=== PATIENT | female | born 1980 | race Caucasian/White ===

== ENCOUNTER → 2017-04-18 | Outpatient (CLI) | payer MEDICARE, OTHER ==
--- NOTE | 2017-04-18 12:32 | WWHP ---
[facility] - HISTORY AND PHYSICAL DATE OF SERVICE: 04/18/2017 CHIEF COMPLAINT: Patient is here for her routine gynecologic exam. HPI: This is a 36-year-old, G4, P-0-4-0 with an LMP of 04/15/2017. The patient uses condoms for control. She states her periods are regular every month but seem to last up to 2 weeks and are very heavy throughout the entire period. She states she has to change her protection up to every 30 minutes on the very heavy days. She is not interested in ever bearing children and would also like to look into having something done regarding her heavy menstrual periods. She states she previously was put on control pills, but this seemed to make her periods worse. PAST MEDICAL HISTORY: Schizophrenia and major depression, bipolar disorder. She was once told her blood pressure was elevated but does not take anything for high blood pressure. MEDICATIONS: 1. Abilify 10 mg q.h.s. 2. Abilify Maintena 400 mg 1 injection monthly. 3. Clozaril 100 mg 2 tablets at bedtime. 4. Sertraline 100 mg 1 p.o. q.a.m. ALLERGIES: No known drug allergies. PAST SURGICAL HISTORY: None. PAST OB HISTORY: The patient states she has been more than once and has had spontaneous abortions with each of them. She believes she has had about 4 miscarriages. PAST PACKING AND SHIPPING CLERK HISTORY: Menarche was at age 15. She initially had periods every 3 months until about age 22 when they became regular every month. She has had hypermenorrhea since then. She has no history of STDs. SOCIAL HISTORY: She denies tobacco, alcohol, and drug use. She does live on her own and has been with her boyfriend for 3 months but does not live with him. She has had a total of about 6 sexual partners in her lifetime. FAMILY HISTORY: Mother, maternal grandmother, and maternal aunts have schizophrenia. REVIEW OF SYSTEMS: She states she previously weighed up to 300 pounds but has lost weight with diet and exercise. She denies respiratory, cardiac or GI problems. PHYSICAL EXAM: Blood pressure 118/64, height 5 feet 8 inches, weight 229 pounds, temperature 96.3, pulse 98. This is a well-developed, well-nourished, white female, who is alert and oriented x3. In no acute distress. HEENT is within normal limits. NECK: Supple without mass or thyromegaly. CHEST AND LUNGS: Clear to auscultation. HEART: Regular rate and rhythm. Breasts are without mass or discharge. Axillary exam is negative for adenopathy. Back negative for CVA tenderness. ABDOMEN: Soft, nontender, without palpable masses. Pelvic exam normal external genitalia. Cervix and vagina revealed a small amount of menstrual-type blood. There is otherwise no other abnormal discharge. There is no evidence of prolapse. There is no cervical motion tenderness. The uterus is mid position, nongravid size and nontender. There are no palpable adnexal masses or tenderness. Rectal exam was declined by the patient. EXTREMITIES: Nontender. IMPRESSION: 1. A 36-year-old female with normal gynecologic exam. 2. Long history of hypermenorrhea consisting of heavy menstrual flow and prolonged menses without any significant physical findings at this time. 3. Undesired fertility. 4. History of schizophrenia, major depression and bipolar disorder. PLAN: 1. Pap smear was performed. 2. GC and chlamydia screening from the cervix were obtained. 3. Self breast examination was discussed. 4. We have had a long discussion regarding her hypermenorrhea and her undesired fertility. I have recommended that she look into endometrial ablation and tubal sterilization. She states she is also considering hysterectomy. 5. The patient will be referred to a order department supervisor who can talk to her about these procedures and possibly do the procedures for her hypermenorrhea and undesired fertility. 6. ACOG frequently asked question handouts on endometrial ablation and tubal sterilization were given to the patient. 7. She will also return in 1 year. MMODL / IJN: [id number] /
== END ==
LOC: WWCWWP 09:50 → EEVIPCON 10:40
PROVIDERS: ATTEND Obstetrics & Gynecology
DX: Z00.00 Encounter for general adult medical examination without abnormal findings (principal)

== ENCOUNTER → 2017-10-03 | Outpatient (CLI) | payer MEDICARE, OTHER ==
--- NOTE | 2017-10-04 08:23 | US ---
EXAMINATION TYPE: US OB >= 14 wk fetus Late second trimester DATE OF EXAM: 10/03/2017 COMPARISON: None CLINICAL HISTORY: Z36 Confirm Dates, Z34.00 Unknown dates. TECHNIQUE: Transabdominal (TA) GESTATIONAL AGE / DATING Physician Established: Not yet established Dates by LMP: LMP unknown Dates by First Scan: No previous this is first scan Dates by Current Scan: (25 weeks/2 days) EDC: 01/14/2018 Beta HCG (if available): Not available at this time SURVEY IUP: Single PLACENTA: Anterior PREVIA: No Previa SHAYNE: 11.8 cm Normal CERVICAL LENGTH (transabdominal: norm > 3.0cm): 4.2 cm BIOMETRY PRESENTATION: Vertex LIE: Longitudinal BPD: 6.2 cm 25 weeks / 2 days HC: 23.0 cm 25 weeks / 1 days AC: 20.4 cm 25 weeks / 0 days FL: 4.7 cm 25 weeks / 5 days ESTIMATED WEIGHT IN GRAMS: 788 grams ESTIMATED WEIGHT IN LBS/OZ: 1 lbs. 12 oz. HC/AC: 1.13 FL/AC: 23% HEART RATE: 158 bpm RHYTHM: Normal Single live intrauterine gestation is confirmed. Normal cephalad presentation to fetus is seen. There is no ultrasound evidence for placenta previa. Amniotic fluid index is within normal limits. b iometry measurements are congruent and felt within normal limits. IMPRESSION: As above
== END | disposition home or self-care (01) ==
LOC: RADUSWWP 15:41
PROVIDERS: ATTEND Internal Medicine
DX: Z36.9 Encounter for antenatal screening, unspecified (principal); Z3A.25 25 weeks gestation of pregnancy
CPT/HCPCS: 76805

== ENCOUNTER 2017-12-06 17:12 | Outpatient (CLI) | payer MEDICARE, OTHER ==
[2017-12-06 17:57] VITALS: BP 122/72; PULSE 97; RESP 16; TEMP 96.9
--- NOTE | 2017-12-06 19:13 | US ---
EXAMINATION TYPE: US OB BPP wo non-stress DATE OF EXAM: 12/06/2017 COMPARISON: NONE CLINICAL HISTORY: Fell on abdomen about 1600; non-reassuring FHT's. DIAPHRAGM IMAGED: Yes BPP SCORIN. Breathin (1 episode of breathing of 30 second duration in 30 minutes of scanning time) 2. Movement: 2 (at least 2 discrete body movements in 30 minutes) 3. Tone: 2 (1 episode of active flexion/extension of limb) 4. SHAYNE: 2 (SHAYNE index > 5cm) TOTAL SCORE: 8 / 8 Normal exam. Biophysical profile score is 8.
[2017-12-06] MEDS ORDERED: LACTATED RINGERS 1,000 ML IV ONE (19:30)
[2017-12-06 20:32] LABS: Amphetamine Screen,Urine Not Detected (NotDetected); Barbiturate Screen,Urine Not Detected (NotDetected); Benzodiazepines Screen,Urine Not Detected (NotDetected); Cocaine Screen,Urine Not Detected (NotDetected); Methadone Screen, Urine Not Detected (NotDetected); Opiate Screen,Urine Not Detected (NotDetected); Oxycodone Screen, Urine Not Detected (NotDetected); Phencyclidine Screen,Urine Not Detected (NotDetected); Tricyclic Antidepressant,Urine Detected (NotDetected); Urn Cannabinoid Scrn Not Detected (NotDetected)
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
== END 2017-12-06 20:50 | disposition home or self-care (01) ==
LOC: FBPOP 17:12
PROVIDERS: ATTEND Obstetrics & Gynecology
DX: O9A.213 Injury, poisoning and certain other consequences of external causes complicating pregnancy, third trimester (principal); O26.893 Other specified pregnancy related conditions, third trimester; G89.11 Acute pain due to trauma; Z3A.34 34 weeks gestation of pregnancy
CPT/HCPCS: 59025; 96360; 80306; 76819; G0463; 99214

== ENCOUNTER 2018-01-22 10:36 | Inpatient (IN) | payer MEDICARE, OTHER ==
[2018-01-22] MEDS ORDERED: OXYTOCIN 10 UNIT/ML 1 ML VIAL IM PRN (11:12)
[2018-01-22] MEDS ORDERED: CARBOPROST TROMETHAMINE 250 MCG/ML 1 ML AMP IM PRN (11:12)
[2018-01-22] MEDS ORDERED: LIDOCAINE 1% (PF) 10 MG/ML (30 ML SDV) SQ PRN (11:12)
[2018-01-22] MEDS ORDERED: TERBUTALINE 1 MG/ML VIAL SQ PRN (11:12)
[2018-01-22] MEDS ORDERED: METHYLERGONOVINE 0.2 MG/ML 1 ML AMP IM PRN (11:12)
[2018-01-22] MEDS ORDERED: OXYTOCIN 20 UNITS/1000 ML NS 1,000 ML IV SCH (11:15)
[2018-01-22 11:19] VITALS: BMI 40.6
[2018-01-22 11:28] LABS: Basophils % (A) 0 %; Eosinophils % (A) 0 %; HCT 38.2 % (34.0-46.0); HGB 12.7 gm/dL (11.4-16.0); Lymphocytes # (A) 1.3 k/uL (1.0-4.8); Lymphocytes % (A) 7 %; MCH 28.9 pg (25.0-35.0); MCHC 33.3 g/dL (31.0-37.0); MCV 86.7 fL (80.0-100.0); Mean Platelet Volume 7.8; Monocytes # (A) 0.4 k/uL (0-1.0); Monocytes % (A) 3 %; Neutrophils # (A) 15.3 k/uL (1.3-7.7); Neutrophils % (A) 89 %; Platelet Count 228 k/uL (150-450); RBC 4.41 m/uL (3.80-5.40); RDW 14.3 % (11.5-15.5); WBC 17.1 k/uL (3.8-10.6)
--- NOTE | 2018-01-22 12:00 | P.HPOB ---
History of Present Illness H&P Date: 01/22/18 Chief Complaint: Decreased movement This is a 37-year-old female 5 para 1031 EDC 01/14/2018 at 41 and one sevenths weeks' gestation. Patient presented to the office, and upon questioning reported decreased movement. Amniotic fluid index was checked and noted to be 8 cm. She had a nonreactive nonstress test and was sent over for direct admission. She denies uterine contractions. Spontaneous amniorrhexis occurred, meconium-stained fluid a proximally 1 hour ago. Obstetric history is significant for negative group B strep cultures, rubella status immune, blood type O+. Gonorrhea and chlamydia cultures, Pap smear, VDRL testing, hepatitis B surface antigen, HIV testing all negative. Past medical history is significant for bipolar disorder, major depression and schizophrenia. She also has a history of asthma. Past surgical history wisdom teeth extracted in the past. Current medications clots 0 100 mg tabs 3 at at bedtime. vitamin daily. ALLERGIES none known. Family history significant for schizophrenia and hypertension. On exam she is 5 foot 8 inches, 252 pounds, blood pressure 129/78, pulse 1:15. She is afebrile. The general physical exam is within normal limits. Cervix is 2 cm dilated, 70% effaced, dark meconium-stained fluid noted at the perineal body. Internal scalp lead is placed, application is not sound, therefore it is removed. External monitor reveals a heart rate in the 140s to 150s baseline with reasonable overall variability. Mild irregular uterine contractions are noted. Upon pelvic examination, there is a spontaneous deceleration for approximately 4 minutes, good recovery is noted. Impression: 41 and one sevenths weeks intrauterine , dark meconium- stained fluid, nonreassuring heart tones here for augmentation of labor. Psychiatric history noted, patient well oriented 3 with appropriate mood and affect at this time her Plan: Oxytocin per hospital protocol. Continue close maternal and surveillance. Anticipate normal spontaneous vaginal delivery. Patient has consented to tubal ligation if a section and is deemed necessary during the course of labor. All questions per patient and multiple family members are addressed. Review of Systems Negative except as in HPI. Constitutional: Reports as per HPI Past Medical History Past Medical History: Asthma, GERD/Reflux Additional Past Medical History / Comment(s): FREQUENT VOMITING, hypoglycemia. Schizophrenia, major depression, bipolar disorder History of Any Multi-Drug Resistant Organisms: None Reported Past Surgical History: No Surgical Hx Reported Past Anesthesia/Blood Transfusion Reactions: No Reported Reaction Past Psychological History: Bipolar, Schizophrenia Smoking Status: Never smoker Past Alcohol Use History: None Reported Past Drug Use History: None Reported - Past Family History Mother Family Medical History: Cancer, Hypertension Additional Family Medical History / Comment(s): lung cancer Father Family Medical History: Cancer, Hypertension Additional Family Medical History / Comment(s): liver cancer Medications and Allergies Home Medications and Allergies Comment(s): clozaril 100mg 3 pills at hs Home Medications Medication Instructions Recorded Confirmed Type Pnv,Calcium 72/Iron/Folic Acid 1 tab PO DAILY 12/06/17 12/06/17 History [ Plus Tablet] Allergies Allergy/AdvReac Type Severity Reaction Status Date / Time latex Allergy Rash/Hives Verified 01/22/18 11:02 Exam - Vital Signs Vital signs: Vital Signs Temp Pulse Resp BP 01/22/18 11:03 96.6 F L 115 H 16 129/78 Intake and Output 01/21/18 01/22/18 01/22/18 22:59 06:59 14:59 Other: Weight 114.305 kg See dictation under HPI please Results Result Diagrams: 01/22/18 11:06 Abnormal Lab Results - Last 24 Hours (Table) 01/22/18 Range/Units 11:06 WBC 17.1 H (3.8-10.6) k/uL Neutrophils # 15.3 H (1.3-7.7) k/uL Assessment and Plan Plan: Close maternal and surveillance. Oxytocin augmentation. Patient is requesting tubal ligation if section as needed. Time with Patient: Greater than 30
[2018-01-22] MEDS ORDERED: ceFAZolin IN SWFI 2 GM/20 ML SYRINGE IVP ONE (13:18)
[2018-01-22] MEDS ORDERED: CITRIC ACID-SODIUM CITRATE 15 ML CUP PO ONE (13:18)
[2018-01-22] MEDS ORDERED: ePHEDrine SULFATE/0.9% NACL/PF 50 MG/5 ML SYRINGE IV ONE (13:39)
[2018-01-22] MEDS ORDERED: LACTATED RINGERS 1,000 ML BAG IV ONE (13:39)
[2018-01-22] MEDS ORDERED: PHENYLEPHRINE-0.9% NACL SYG 1 MG/10 ML SYRINGE ONE (13:39)
[2018-01-22] MEDS ORDERED: ceFAZolin 1,000 MG VIAL ONE (13:39)
[2018-01-22] MEDS ORDERED: OXYTOCIN 10 UNIT/ML 1 ML VIAL ONE (13:39)
[2018-01-22] MEDS ORDERED: NALBUPHINE 10 MG/ML AMPUL ONE (13:39)
[2018-01-22] MEDS ORDERED: MORPHINE SULFATE (PF) 0.3 MG/0.3 ML SYR ONE (13:39)
[2018-01-22] MEDS ORDERED: diphenhydrAMINE 50 MG/ML 1 ML VIAL IVP PRN ×2 (14:32)
[2018-01-22] MEDS ORDERED: diphenhydrAMINE 50 MG CAP PO PRN (14:32)
[2018-01-22] MEDS ORDERED: ZOLPIDEM 5 MG TAB PO PRN (14:32)
[2018-01-22] MEDS ORDERED: NALOXONE 0.4 MG/ML 1 ML VIAL IV PRN (14:32)
[2018-01-22] MEDS ORDERED: diphenhydrAMINE 25 MG CAP PO PRN (14:32)
[2018-01-22] MEDS ORDERED: METOCLOPRAMIDE 5 MG/ML 2 ML VIAL IVP PRN (14:32)
[2018-01-22] MEDS ORDERED: ACETAMINOPHEN TAB 325 MG TAB PO PRN (14:32)
[2018-01-22] MEDS ORDERED: ONDANSETRON 4 MG/2 ML VIAL IVP PRN (14:32)
--- NOTE | 2018-01-22 14:32 | P.OP ---
Date of Procedure: 01/22/18 Preoperative Diagnosis: 41 and one sevenths weeks, meconium-stained fluid, advanced maternal age, nonreassuring heart tones Postoperative Diagnosis: Liveborn male infant, left occiput transverse position, nuchal cord 2, normal- appearing tubes and ovaries Procedure(s) Performed: Primary low transverse section, tubal ligation with Filshie clips Anesthesia: spinal Surgeon: Indy Arriaga Cycle Manager #1: Collette Isaacs Estimated Blood Loss (ml): 600 IV fluids (ml): 900 Urine output (ml): 50 Pathology: other (Placenta) Condition: stable Disposition: PACU Description of Procedure: Patient was seen in the office today at 41 and one sevenths weeks. She was noted to have a nonreactive NST and therefore sent to labor and delivery. She was admitted, spontaneous amniorrhexis revealed meconium-stained fluid. Oxytocin was started and titrated. Very shortly thereafter, repetitive late decelerations were noted and decision was made to proceed with primary low transverse section. Antibiotics were given. Patient has requested tubal ligation and consents were signed at 28 weeks gestation. Please see dictated history and physical for details. Spinal analgesia was administered without difficulty. She's placed in the dorsal supine position with left lateral uterine displacement. The appropriate timeout is performed to assure proper patient and procedural identification. The abdomen is prepped and draped in usual sterile fashion. The analgesia is checked and noted to be adequate. A low transverse skin incision is made in this is carried down through the subcutaneous tissue which is approximately 8 cm deep. Fascia is isolated, scored and extended bilaterally with curved Trinidad scissors. Peritoneum is next identified and incised, there is no bowel or bladder involvement. The disposable ring retractors placed in the abdomen. A low transverse uterine incision is made in this is extended bluntly. Upon entering the endometrial cavity thick dark meconium-stained fluid was encountered. The 's head is delivered in left occiput transverse position. There was a nuchal cord 2 that was reduced. Patient is officially delivered of a liveborn male at 1357 hours. The umbilical cord is doubly clamped and ligated, cord gases are sent to the lab. The placentas delivered spontaneously, it is inspected and noted to be intact with trivascular cord and darkly meconium stained. It is sent to the lab for further evaluation. The uterus is then externalized and wiped clean with a sterile sponge to avoid any retained products of conception. Uterine edges are grasped with Gramajo clamps and the uterus is closed in a single full- thickness layer. Patient's desire for tubal ligation is reaffirmed. The tubes are ligated in the isthmic portion with care to traverse the entire diameter of the tube into the mesal salpinx. Filshie clamps are utilized. Fimbriated ends are identified for proper placement. Ovaries appear normal. Uterus is replaced into the abdominal cavity. Bilateral gutters are inspected and cleaned. Uterine incision is clean and dry, hemostatically intact. Peritoneum is allowed to close by secondary intention. Rosemary is closed in a running stitch of 0 Vicryl with over ligation in the midline. Subcutaneous tissue is irrigated with saline, noted to be clean and dry. It is reapproximated with 3-0 Vicryl in a running fashion. 4-0 undyed Monocryl is used in a subcuticular manner for final skin closure. Steri-Strips and Mastisol are applied to the wound. Dressing is placed. Uterus is then massaged , only a small amount of uterine bleeding is noted. Gamez is noted to be draining clear urine in the tube. All sponge needle and enhancement counts are correct at the end of the procedure. Patient is brought back to recovery room in good condition with stable vital signs including a pulse of 89, blood pressure 90/51, 95% O2 saturation. Infant weighed 6 lbs. 9 oz. or 2990 g.
[2018-01-22] MEDS ORDERED: LACTATED RINGERS 1,000 ML IV SCH (14:45)
[2018-01-22] MEDS: LACTATED RINGERS 1,000 ML IV SCH (15:55)
[2018-01-22] MEDS: cloZAPine 100 MG TAB PO SCH (21:43)
[2018-01-22] MEDS: SENNOSIDES-DOCUSATE SODIUM 1 EACH TAB PO SCH (21:44)
[2018-01-23] MEDS: KETOROLAC 30 MG/ML 1 ML VIAL IVP PRN ×2 (01:37→08:14)
--- NOTE | 2018-01-23 06:21 | P.PN ---
Progress Note - Text Progress Note Date: 01/23/18 Postoperative day 1 status post section under spinal anesthesia and intrathecal Duramorph for postoperative analgesia.The patient is doing well, there is mild generalized skin itching. There are no other anesthesia related complications. Further management as per the patient primary team.
[2018-01-23] MEDS: SERTRALINE 50 MG TAB PO SCH (08:14)
[2018-01-23] MEDS: SENNOSIDES-DOCUSATE SODIUM 1 EACH TAB PO SCH ×2 (08:14→19:56)
[2018-01-23 09:01] LABS: Basophils % (A) 0 %; Eosinophils % (A) 0 %; HCT 30.2 % (34.0-46.0); HGB 10.2 gm/dL (11.4-16.0); Lymphocytes # (A) 0.6 k/uL (1.0-4.8); Lymphocytes % (A) 5 %; MCH 28.9 pg (25.0-35.0); MCHC 33.8 g/dL (31.0-37.0); MCV 85.7 fL (80.0-100.0); Mean Platelet Volume 9.8; Monocytes # (A) 0.3 k/uL (0-1.0); Monocytes % (A) 2 %; Neutrophils # (A) 12.1 k/uL (1.3-7.7); Neutrophils % (A) 93 %; Platelet Count 170 k/uL (150-450); RBC 3.52 m/uL (3.80-5.40); RDW 14.3 % (11.5-15.5); WBC 13.1 k/uL (3.8-10.6)
--- NOTE | 2018-01-23 09:49 | P.PN ---
Subjective Progress Note Date: 01/23/18 Principal diagnosis: Postoperative day #1 Objective - Vital Signs Vital signs: Vital Signs Temp 100.1 F H 01/23/18 08:00 Pulse 115 H 01/23/18 08:00 Resp 18 01/23/18 08:00 BP 122/71 01/23/18 08:00 Pulse Ox 98 01/23/18 04:00 Intake & Output 01/22/18 01/23/18 01/23/18 18:59 06:59 18:59 Intake Total 900 Output Total 800 900 125 Balance 100 -900 -125 Weight 114.305 kg Intake: IV 900 Output: Urine 200 900 125 Uretheral (Gamez) 300 Estimated Blood Loss 600 Other: Voiding Method Indwelling Catheter - Exam Incision clean and dry, well approximated, Steri-Strips applied. Fundus firm, symmetric, midline, 18 week size. - Constitutional General appearance: Present: average body habitus, cooperative - EENT Eyes: Present: PERRLA ENT: Present: hearing grossly normal - Respiratory Respiratory: bilateral: CTA - Cardiovascular Rhythm: regular - Gastrointestinal Gastrointestinal Comment(s): Abdomen is softly distended, tympanic. General gastrointestinal: Present: decreased bowel sounds - Integumentary Integumentary: Present: normal - Neurologic Neurologic: Present: CNII-XII intact - Musculoskeletal Musculoskeletal: Present: gait normal, strength equal bilaterally - Psychiatric Psychiatric: Present: A&O x's 3, appropriate affect - Labs CBC & Chem 7: 01/23/18 08:46 Labs: Abnormal Lab Results - Last 24 Hours (Table) 01/22/18 01/23/18 Range/Units 11:06 08:46 WBC 17.1 H 13.1 H (3.8-10.6) k/uL RBC 3.52 L (3.80-5.40) m/uL Hgb 10.2 L (11.4-16.0) gm/dL Hct 30.2 L (34.0-46.0) % Neutrophils # 15.3 H 12.1 H (1.3-7.7) k/uL Lymphocytes # 0.6 L (1.0-4.8) k/uL Assessment and Plan Assessment: Postoperative day #1, doing well Plan: Low-grade temperature noted, WBCs 13.1. Increase oral fluids. Patient may shower. Advance diet when positive flatus. Time with Patient: Greater than 30
[2018-01-23] MEDS: LACTATED RINGERS 1,000 ML IV SCH (11:42)
[2018-01-23] MEDS: cloZAPine 100 MG TAB PO SCH (11:46)
[2018-01-23 14:36] LABS: Amorphous Sediment,Urine Rare /hpf; Appearance,Urine Cloudy (Clear); Bilirubin,Urine 1+ (Negative); Blood,Urine Large (Negative); Color,Urine Dark Brown; Glucose,Urine (UA) Negative (Negative); Granular Casts,Urine 11 /lpf (0); Hyaline Casts,Urine 5 /lpf (0-2); Ketones,Urine Negative (Negative); Leukocyte Esterase,Urine Small (Negative); Mucus,Urine Occasional /hpf; Nitrite,Urine Negative (Negative); PH, Urine 5.5 (5.0-8.0); Protein,Urine 2+ (Negative); RBC,Urine 29 /hpf (0-5); Specific Gravity,Urine 1.022 (1.001-1.035); Squamous Epithelial Cell,Urine 1 /hpf (0-4); WBC,Urine 17 /hpf (0-5)
[2018-01-23 14:39] LABS: Amphetamine Screen,Urine Not Detected (NotDetected); Barbiturate Screen,Urine Not Detected (NotDetected); Benzodiazepines Screen,Urine Not Detected (NotDetected); Cocaine Screen,Urine Not Detected (NotDetected); Methadone Screen, Urine Not Detected (NotDetected); Opiate Screen,Urine Not Detected (NotDetected); Oxycodone Screen, Urine Not Detected (NotDetected); Phencyclidine Screen,Urine Not Detected (NotDetected); Tricyclic Antidepressant,Urine Detected (NotDetected); Urn Cannabinoid Scrn Not Detected (NotDetected)
[2018-01-23] MEDS: IBUPROFEN 600 MG TAB PO PRN (15:27)
[2018-01-23] MEDS: HYDROcodone/APAP 5-325MG 1 EACH TAB PO PRN (19:57)
[2018-01-23] MEDS ORDERED: cloZAPine 100 MG TAB PO SCH (21:00)
[2018-01-24] MEDS: HYDROcodone/APAP 5-325MG 1 EACH TAB PO PRN (05:06)
--- NOTE | 2018-01-24 08:02 | P.DS ---
Providers Date of admission: 01/22/18 10:36 Expected date of discharge: 01/24/18 Attending physician: [facility] Course: This is a 37-year-old female 5 para 1031 EDC 01/14/2018 at 41 and one sevenths weeks' gestation. Patient presented to the office for her routine obstetrical visit at which time a nonreactive nonstress test was noted. Normal SHAYNE was documented at 8 cm. She was sent to labor and delivery. Spontaneous amniorrhexis occurred on route, thick meconium-stained fluid. Oxytocin was started and titrated minimally. Immediately late decelerations were noted and decision was made to proceed with section. is remarkable for patient's history of schizophrenia, major depression, bipolar disorder, being followed by [facility]. Please see my dictated history and physical for details. Patient underwent a primary low transverse section with tubal ligation utilizing Filshie clips. She gave to a liveborn male infant with scores of 57 and 9 at one and 5 and 10 minutes respectively. He was in the left occiput transverse position and had a nuchal cord 2. He weighed 2990 g or 6 lbs. 9 oz., please see my dictated operative note for details. Postoperatively the patient has done reasonably well. [facility] visited her yesterday, medications have been slightly changed. She is now on clozaril 350 mg at at bedtime, and Zoloft 50 mg each morning. Patient's pain is reasonably well controlled on ibuprofen. Her vital signs are stable and she has remained afebrile. The incision is clean and dry, intact, Steri-Strips applied. Fundus is firm and in the midline, symmetric and 18 week size. Patient is passing flatus and voiding without issues. She is being discharged home today in reasonably good condition. She is to follow-up with [facility] within the week. She will use over-the- counter ibuprofen products, 200 mg pills, 3 every 6 hours as needed. I have reminded her no intercourse, tampons or douching. I have reviewed carefully with her the medications that are recommended, and she seems to have good understanding. I have asked her to call me with any fevers shakes or chills, foul smelling or copious lochia, with the passage of large blood clots, with any pain not alleviated by ibuprofen, or indeed with any questions or concerns. Patient Condition at Discharge: Good Plan - Discharge Summary Discharge Rx Participant: No New Discharge Prescriptions: No Action Pnv,Calcium 72/Iron/Folic Acid [ Plus Tablet] 1 tab PO DAILY cloZAPine [Clozaril] 300 mg PO HS Discharge Medication List Pnv,Calcium 72/Iron/Folic Acid [ Plus Tablet] 1 tab PO DAILY 12/06/17 [ History] cloZAPine [Clozaril] 350 mg PO HS 01/22/18 [History] Sertraline [Zoloft] 50 mg 01/24/18 [History] Follow up Appointment(s)/Referral(s): Indy Arriaga MD [STAFF PHYSICIAN] - 2 Weeks
[2018-01-24] MEDS: IBUPROFEN 600 MG TAB PO PRN (08:32)
[2018-01-24] MEDS: SERTRALINE 50 MG TAB PO SCH (08:33)
[2018-01-24] MEDS: SENNOSIDES-DOCUSATE SODIUM 1 EACH TAB PO SCH (08:33)
[2018-01-24 09:30] VITALS: BP 134/75; PULSE 114; RESP 20; TEMP 98.4
== END 2018-01-24 10:40 | disposition home or self-care (01) | DRG 766 ==
LOC: 4FBP 10:36
PROVIDERS: ADMIT Obstetrics & Gynecology; ATTEND Obstetrics & Gynecology
PROC: 0UL70CZ Occlusion of Bilateral Fallopian Tubes with Extraluminal Device, Open Approach (ICD-10-PCS; 2018-01-22)
PROC: 10D00Z1 Extraction of Products of Conception, Low, Open Approach (ICD-10-PCS; principal; 2018-01-22 13:00)
DX: O36.8190 Decreased fetal movements, unspecified trimester, not applicable or unspecified (principal); Z37.0 Single live birth; O77.0 Labor and delivery complicated by meconium in amniotic fluid; O69.81X0 Labor and delivery complicated by cord around neck, without compression, not applicable or unspecified; O76 Abnormality in fetal heart rate and rhythm complicating labor and delivery; O99.344 Other mental disorders complicating childbirth; F20.9 Schizophrenia, unspecified; F31.9 Bipolar disorder, unspecified; O99.52 Diseases of the respiratory system complicating childbirth; J45.909 Unspecified asthma, uncomplicated; O99.62 Diseases of the digestive system complicating childbirth; K21.9 Gastro-esophageal reflux disease without esophagitis; Z3A.41 41 weeks gestation of pregnancy; Z80.0 Family history of malignant neoplasm of digestive organs; Z80.1 Family history of malignant neoplasm of trachea, bronchus and lung; Z82.49 Family history of ischemic heart disease and other diseases of the circulatory system; Z81.8 Family history of other mental and behavioral disorders
CPT/HCPCS: 80306; 81001; 85025; 86850; 86900; 86901; 87086; 88307

== ENCOUNTER 2018-11-25 22:52 | Emergency (ER) | payer MEDICARE, OTHER ==
[2018-11-25] MEDS ORDERED: IPRATROPIUM-ALBUTEROL 3 ML NEB INHALATION STA (23:14)
--- NOTE | 2018-11-25 23:18 | ED ---
General Adult HPI - General Chief complaint: Shortness of Breath Stated complaint: JAMES, vomiting Time Seen by Provider: 11/25/18 22:55 Source: patient, RN notes reviewed Mode of arrival: ambulatory Limitations: no limitations - History of Present Illness Initial comments: This is a 37-year-old female who is developmentally delayed and has a guardian. Patient comes in today and is a very poor historian. Patient states when she coughs she is short of breath but only when she coughs. Patient states this is been going on for many months. Patient states she also vomits but she doesn't know how long is going on but she states been it's been a long time. Patient denies any pain. Patient denies any chest pain. Patient denies any current shortness of breath. Patient denies any current nausea. Patient denies any abdominal pain. Patient denies any recent fever chills. Patient denies any diarrhea. Patient denies any smoking there is no one that can provide a better history that is come with the patient. - Related Data Home Medications Medication Instructions Recorded Confirmed cloZAPine [Clozaril] 300 mg PO HS 01/22/18 11/25/18 Cholecalciferol [Vitamin D3] 5,000 unit PO DAILY 11/25/18 11/25/18 Sertraline [Zoloft] 200 mg PO DAILY 11/25/18 11/25/18 cloZAPine [Clozaril] 50 mg PO HS 11/25/18 11/25/18 Allergies Allergy/AdvReac Type Severity Reaction Status Date / Time latex Allergy Rash/Hives Verified 11/25/18 23:12 Review of Systems ROS Statement: Those systems with pertinent positive or pertinent negative responses have been documented in the HPI. ROS Other: All systems not noted in ROS Statement are negative. Past Medical History Past Medical History: Asthma, GERD/Reflux Additional Past Medical History / Comment(s): FREQUENT VOMITING, hypoglycemia. Schizophrenia, major depression, bipolar disorder History of Any Multi-Drug Resistant Organisms: None Reported Past Surgical History: No Surgical Hx Reported Past Anesthesia/Blood Transfusion Reactions: No Reported Reaction Past Psychological History: Bipolar, Schizophrenia Smoking Status: Never smoker Past Alcohol Use History: None Reported Past Drug Use History: None Reported - Past Family History Mother Family Medical History: Cancer, Hypertension Additional Family Medical History / Comment(s): lung cancer Father Family Medical History: Cancer, Hypertension Additional Family Medical History / Comment(s): liver cancer General Exam - General Exam Comments Initial Comments: GENERAL: Patient is well-developed and well-nourished. Patient is nontoxic and well- hydrated and is in no acute distress. ENT: Neck is soft and supple. No significant lymphadenopathy is noted. Oropharynx is clear. Moist mucous membranes. Neck has full range of motion without eliciting any pain. EYES: The sclera were anicteric and conjunctiva were pink and moist. Extraocular movements were intact and pupils were equal round and reactive to light. Eyelids were unremarkable. PULMONARY: Patient is slightly diminished breath sounds CARDIOVASCULAR: There is a regular rate and rhythm without any murmurs gallops or rubs. ABDOMEN: Soft and nontender with normal bowel sounds. SKIN: Skin is clear with no lesions or rashes and otherwise unremarkable. NEUROLOGIC: Patient is alert and oriented x3. Cranial nerves II through XII are grossly intact. Motor and sensory are also intact. Normal speech, volume and content. Symmetrical smile. MUSCULOSKELETAL: Normal extremities with adequate strength and full range of motion. No lower extremity swelling or edema. No calf tenderness. LYMPHATICS: No significant lymphadenopathy is noted PSYCHIATRIC: Normal psychiatric evaluation. Limitations: no limitations Course Vital Signs 11/25/18 11/25/18 11/25/18 22:55 23:22 23:28 Temperature 98.2 F Pulse Rate 113 H 114 H 114 H Respiratory 20 Rate Blood Pressure 118/76 O2 Sat by Pulse 95 Oximetry Medical Decision Making - Medical Decision Making Chest x-ray showed no acute abnormality. Patient received a breathing treatment while in the emergency department. I went back in and reevaluated the patient she stated she was feeling better she was in no distress - Lab Data Lab Results 11/25/18 Range/Units 23:19 Urine Color Yellow Urine Appearance Cloudy H (Clear) Urine pH 6.0 (5.0-8.0) Ur Specific [place] 1.028 (1.001-1.035) Urine Protein 2+ H (Negative) Urine Glucose (UA) Negative (Negative) Urine Ketones Negative (Negative) Urine Blood Moderate H (Negative) Urine Nitrite Negative (Negative) Urine Bilirubin Negative (Negative) Urine Urobilinogen 2.0 (<2.0) mg/dL Ur Leukocyte Esterase Moderate H (Negative) Urine RBC 17 H (0-5) /hpf Urine WBC 7 H (0-5) /hpf Ur Squamous Epith Cells 9 H (0-4) /hpf Hyaline Casts 3 H (0-2) /lpf Urine Mucus Occasional H (None) /hpf Urine Yeast (Budding) Moderate H (None) /hpf Disposition Clinical Impression: Respiratory tract infection Disposition: HOME SELF-CARE Condition: Good Instructions (If sedation given, give patient instructions): Upper Respiratory Infection (ED) Is patient prescribed a controlled substance at d/c from ED?: No Referrals: None,Stated [REFERRING] - 1-2 days Time of Disposition: 00:11
[2018-11-25 23:32] LABS: Appearance,Urine Cloudy (Clear); Bilirubin,Urine Negative (Negative); Blood,Urine Moderate (Negative); Budding Yeast,Urine Moderate /hpf; Color,Urine Yellow; Glucose,Urine (UA) Negative (Negative); Hyaline Casts,Urine 3 /lpf (0-2); Ketones,Urine Negative (Negative); Leukocyte Esterase,Urine Moderate (Negative); Mucus,Urine Occasional /hpf; Nitrite,Urine Negative (Negative); Protein,Urine 2+ (Negative); RBC,Urine 17 /hpf (0-5); Specific Gravity,Urine 1.028 (1.001-1.035); Squamous Epithelial Cell,Urine 9 /hpf (0-4); WBC,Urine 7 /hpf (0-5)
--- NOTE | 2018-11-25 23:39 | XR ---
EXAM: XR Chest, 2 Views CLINICAL HISTORY: ITS.REASON XR Reason: Difficulty breathing TECHNIQUE: Frontal and lateral views of the chest. COMPARISON: No relevant prior studies available. FINDINGS: Lungs: Unremarkable. No consolidation. Pleural space: Unremarkable. No pneumothorax. Heart: No suspicious enlargement. Mediastinum: Unremarkable. Bones/joints: No acute fracture. IMPRESSION: No acute findings.
[2018-11-26 00:17] VITALS: BP 142/68; PULSE 99; RESP 18; TEMP 98.1
== END 2018-11-26 00:17 | disposition home or self-care (01) ==
LOC: EEVIPCON 22:52 → EC 22:52
DX: J98.8 Other specified respiratory disorders (principal); F31.9 Bipolar disorder, unspecified; F20.9 Schizophrenia, unspecified; Z79.899 Other long term (current) drug therapy; Z91.040 Latex allergy status
CPT/HCPCS: 71046; 81001; 94640; 99285

== ENCOUNTER 2019-08-11 12:17 | Emergency (ER) | payer MEDICARE, OTHER ==
[2019-08-11 12:31] VITALS: BP 134/89; PULSE 100; RESP 20; TEMP 98.2
--- NOTE | 2019-08-11 13:06 | ED ---
Animal Bite HPI - General Chief Complaint: Animal Bite Stated Complaint: cat bite Time Seen by Provider: 08/11/19 12:54 Source: patient Mode of arrival: ambulatory Limitations: no limitations - History of Present Illness Initial Comments: Patient is a 38-year-old female presenting to emergency Department with complaints of a cat bite to her upper lip that happened just prior to arrival. Patient states she was holding her older cat when the cat bit her on the upper lip. Patient states he Does not like to be held but she did anyway. The cat is up-to-date with her vaccines. Patient's tetanus vaccine is also up-to-date. Patient has no other complaints at this time. Upon arrival to the ER, vital signs are stable. - Related Data Home Medications Medication Instructions Recorded Confirmed cloZAPine [Clozaril] 300 mg PO HS 01/22/18 11/25/18 Cholecalciferol [Vitamin D3] 5,000 unit PO DAILY 11/25/18 11/25/18 Sertraline [Zoloft] 200 mg PO DAILY 11/25/18 11/25/18 cloZAPine [Clozaril] 50 mg PO HS 11/25/18 11/25/18 Previous Rx's Medication Instructions Recorded Amoxicillin/Potassium Clav 1 tab PO BID 7 Days #14 tab 08/11/19 [Augmentin 875-125 Tablet] Allergies Allergy/AdvReac Type Severity Reaction Status Date / Time latex Allergy Rash/Hives Verified 08/11/19 12:31 Review of Systems ROS Statement: Those systems with pertinent positive or pertinent negative responses have been documented in the HPI. ROS Other: All systems not noted in ROS Statement are negative. Past Medical History Past Medical History: Asthma, GERD/Reflux Additional Past Medical History / Comment(s): FREQUENT VOMITING, hypoglycemia. Schizophrenia, major depression, bipolar disorder History of Any Multi-Drug Resistant Organisms: None Reported Past Surgical History: No Surgical Hx Reported Past Anesthesia/Blood Transfusion Reactions: No Reported Reaction Past Psychological History: Bipolar, Schizophrenia Smoking Status: Never smoker Past Alcohol Use History: None Reported Past Drug Use History: None Reported - Past Family History Mother Family Medical History: Cancer, Hypertension Additional Family Medical History / Comment(s): lung cancer Father Family Medical History: Cancer, Hypertension Additional Family Medical History / Comment(s): liver cancer General Exam - General Exam Comments Initial Comments: GENERAL: Well-appearing, well-nourished and in no acute distress. HEAD: Atraumatic, normocephalic. EYES: Pupils equal round and reactive to light, extraocular movements intact, sclera anicteric, conjunctiva are normal. ENT: Nares patent, oropharynx clear without exudates. Moist mucous membranes. NECK: Normal range of motion, supple without lymphadenopathy or JVD. LUNGS: Breath sounds clear to auscultation bilaterally and equal. No wheezes rales or rhonchi. HEART: Regular rate and rhythm without murmurs, rubs or gallops. EXTREMITIES: Normal range of motion, no pitting or edema. No clubbing or cyanosis. NEUROLOGICAL: Normal speech, normal gait. PSYCH: Normal mood, normal affect. SKIN: Warm, Dry, normal turgor, no rashes. Patient has a minor puncture wounds to the right upper lip. No active bleeding at this time. No sutures required. Limitations: no limitations Course Vital Signs 08/11/19 12:29 Temperature 98.2 F Pulse Rate 100 Respiratory 20 Rate Blood Pressure 134/89 O2 Sat by Pulse 97 Oximetry Medical Decision Making - Medical Decision Making Patient is a 38-year-old female presenting with and a Bite wound to the upper right lip. Wound is minimal. There is no active bleeding. This was patient's own cat and vaccines are up-to-date. Patient's tetanus vaccine is up-to-date. Patient will be started on Augmentin for infection prophylactically. Patient is stable for discharge at this time. She will wash the wound twice a day with mild soap and water. Return parameters were discussed with the patient she verbalized understanding. Disposition Clinical Impression: Cat bite Disposition: HOME SELF-CARE Condition: Stable Instructions (If sedation given, give patient instructions): Animal Bite (ED) Additional Instructions: Please return to the Emergency Department if symptoms worsen or any other concerns. Take and finish antibiotic as prescribed. Wash lip twice a day with mild soap and water. Prescriptions: Amoxicillin/Potassium Clav [Augmentin 875-125 Tablet] 1 tab PO BID 7 Days #14 tab Is patient prescribed a controlled substance at d/c from ED?: No Referrals: [facility] [Primary Care Provider] - 1-2 days
== END 2019-08-11 13:31 | disposition home or self-care (01) ==
LOC: EC 12:17
DX: S01.531A Puncture wound without foreign body of lip, initial encounter (principal); F31.9 Bipolar disorder, unspecified; Z79.899 Other long term (current) drug therapy; Z91.040 Latex allergy status; W55.01XA Bitten by cat, initial encounter
CPT/HCPCS: 99283

== ENCOUNTER → 2019-09-04 | Outpatient (CLI) | payer MEDICARE, OTHER ==
--- NOTE | 2019-09-04 08:09 | US ---
EXAMINATION TYPE: US abdomen complete DATE OF EXAM: 09/04/2019 COMPARISON: NONE CLINICAL HISTORY: R10.84 ABD PAIN. vomiting and abd pain for months EXAM MEASUREMENTS: Liver Length: 20.6 cm Gallbladder Wall: 0.3 cm CBD: 0.4 cm Spleen: 14.5 cm Right Kidney: 11.8 x 4.5 x 4.9 cm Left Kidney: 10.5 x 4.1 x 5.4 cm *large habitus and bowel gas limits exam Pancreas: limited views appear wnl Liver: enlarged, difficult to penetrate Gallbladder: wnl Evidence for sonographic Mckeon's sign: no CBD: wnl Spleen: enlarged Right Kidney: wnl Left Kidney: wnl Upper IVC: wnl Abd Aorta: wnl IMPRESSION: 1. Hepatomegaly with nonspecific pattern of liver which can be seen with hepatic steatosis, diffuse h epatocellular disease or enteritis. 2. Mild splenomegaly
== END | disposition home or self-care (01) ==
LOC: RADUSWWP 07:25
PROVIDERS: ATTEND Internal Medicine
DX: R16.2 Hepatomegaly with splenomegaly, not elsewhere classified (principal)
CPT/HCPCS: 76700

== ENCOUNTER → 2019-10-31 | Outpatient (CLI) | payer MEDICARE, OTHER ==
--- NOTE | 2019-10-31 11:46 | MM ---
Reason for exam: clinical finding. History: Patient had first child at age 36. Physical Findings: Nurse did not find any significant physical abnormalities on exam. MG Diagnostic Mammo w CAD [place] Bilateral CC and MLO view(s) were taken. The breast tissue is heterogeneously dense. This may lower the sensitivity of mammography. There is no discrete abnormality. Benign bilateral axillary lymph nodes. These results were verbally communicated with the patient and result sheet given to the patient on 10/31/19. ASSESSMENT: Negative, BI-RAD 1 RECOMMENDATION: Routine screening mammogram of both breasts at age 42. Manage on a clinical basis with regard to bilateral pain.
== END | disposition home or self-care (01) ==
LOC: RADMAMWWP 10:12
PROVIDERS: ATTEND Nurse Practitioner
DX: N64.4 Mastodynia (principal)
CPT/HCPCS: 77066

== ENCOUNTER 2023-12-06 12:18 | Emergency (ER) | payer MEDICARE, OTHER ==
[2023-12-06 12:27] VITALS: TEMP 98.1
[2023-12-06 13:25] LABS: Basophils % (A) 0 %; Eosinophils % (A) 0 %; HCT 40.6 % (34.0-46.0); HGB 12.8 gm/dL (11.4-16.0); Lymphocytes # (A) 1.7 k/uL (1.0-4.8); Lymphocytes % (A) 23 %; MCH 27.4 pg (25.0-35.0); MCHC 31.4 g/dL (31.0-37.0); MCV 87.2 fL (80.0-100.0); Mean Platelet Volume 9.5; Monocytes # (A) 0.2 k/uL (0-1.0); Monocytes % (A) 2 %; Neutrophils # (A) 5.4 k/uL (1.3-7.7); Neutrophils % (A) 74 %; Platelet Count 191 k/uL (150-450); RBC 4.66 m/uL (3.80-5.40); RDW 13.4 % (11.5-15.5); WBC 7.4 k/uL (3.8-10.6)
--- NOTE | 2023-12-06 13:27 | ED ---
Recheck HPI - General Source: patient, RN notes reviewed Mode of arrival: ambulatory Limitations: no limitations <Rosaura Coffman - Last Filed: 12/06/23 13:26> <Agustin Kim - Last Filed: 12/06/23 16:18> - General Chief Complaint: Recheck/Abnormal Lab/Rx Stated Complaint: Hyperglycemia Time Seen by Provider: 12/06/23 13:26 - History of Present Illness Initial Comments: Quick note: 42-year-old female presented to the ER with a chief complaint of elevated blood sugars. Patient stated she has a past medical history significant of diabetes. She had blood work drawn yesterday and glucose was in the 400s. Patient did not come to the ER as she states she felt fine. She states this morning she has been having chills and feeling unwell. She checked her blood sugar and it was over 600. (Rosaura Coffman) 42-year-old female history of diabetes presenting with elevated blood sugar. Patient has no physical complaints. She has been a diabetic for many years and is not currently on any treatment. No oral medications, no insulin. She does not check her blood glucose regularly. (Agustin Kim) - Related Data Home Medications Medication Instructions Recorded Confirmed cloZAPine [Clozaril] 300 mg PO HS 01/22/18 11/25/18 Cholecalciferol [Vitamin D3] 5,000 unit PO DAILY 11/25/18 11/25/18 Sertraline [Zoloft] 200 mg PO DAILY 11/25/18 11/25/18 cloZAPine [Clozaril] 50 mg PO HS 11/25/18 11/25/18 Previous Rx's Medication Instructions Recorded Amoxicillin/Potassium Clav 1 tab PO BID 7 Days #14 tab 08/11/19 [Augmentin 875-125 Tablet] metFORMIN HCL 500 mg PO BID 30 Days #60 tablet 12/06/23 Allergies Allergy/AdvReac Type Severity Reaction Status Date / Time latex Allergy Rash/Hives Verified 12/06/23 12:22 Review of Systems ROS Other: All systems not noted in ROS Statement are negative. <Rosaura Coffman - Last Filed: 12/06/23 13:26> ROS Other: All systems not noted in ROS Statement are negative. <Agustin Kim - Last Filed: 12/06/23 16:18> ROS Statement: Those systems with pertinent positive or pertinent negative responses have been documented in the HPI. Past Medical History Past Medical History: Asthma, GERD/Reflux Additional Past Medical History / Comment(s): FREQUENT VOMITING, hypoglycemia. Schizophrenia, major depression, bipolar disorder History of Any Multi-Drug Resistant Organisms: None Reported Past Surgical History: No Surgical Hx Reported Past Anesthesia/Blood Transfusion Reactions: No Reported Reaction Past Psychological History: Bipolar, Schizophrenia Smoking Status: Never smoker Past Alcohol Use History: None Reported Past Drug Use History: None Reported - Past Family History Mother Family Medical History: Cancer, Hypertension Additional Family Medical History / Comment(s): lung cancer Father Family Medical History: Cancer, Hypertension Additional Family Medical History / Comment(s): liver cancer <Rosaura Coffman - Last Filed: 12/06/23 13:26> General Exam Limitations: no limitations <Rosaura Coffman - Last Filed: 12/06/23 13:26> General appearance: alert, in no apparent distress Head exam: Present: atraumatic, normocephalic Eye exam: Present: normal appearance Neck exam: Present: normal inspection. Absent: tenderness, meningismus Respiratory exam: Present: normal lung sounds bilaterally. Absent: respiratory distress, wheezes Cardiovascular Exam: Present: regular rate, normal rhythm GI/Abdominal exam: Present: soft. Absent: distended Extremities exam: Present: normal inspection, normal capillary refill Neurological exam: Present: alert, oriented X3, CN II-XII intact. Absent: motor sensory deficit Psychiatric exam: Present: normal affect, normal mood Skin exam: Present: warm, dry, intact <Agustin Kim - Last Filed: 12/06/23 16:18> - General Exam Comments Initial Comments: Visual Physical Exam Vital signs reviewed General: Well-appearing, nontoxic, no acute distress. Head: Normocephalic, atraumatic Eyes: PERRLA, EOMI ENT: Airway patent Chest: Nonlabored breathing Skin: No visual rash, normal skin tone Neuro: Alert and oriented 3 Musculoskeletal: No gross abnormalities (Rosaura Coffman) Course Vital Signs 12/06/23 12/06/23 12:19 15:03 Temperature 98.1 F 98.1 F Pulse Rate 100 90 Respiratory 18 18 Rate Blood Pressure 138/90 121/84 O2 Sat by Pulse 96 96 Oximetry Medical Decision Making - Lab Data Result diagrams: 12/06/23 13:21 <Rosaura Coffman - Last Filed: 12/06/23 13:26> - Lab Data Result diagrams: 12/06/23 13:21 12/06/23 13:21 <Agustin Kim Silva - Last Filed: 12/06/23 16:18> - Medical Decision Making I performed the quick note portion of this chart. Electronically signed by Rosaura Coffman PA-C (Rosaura Coffman) Was pt. sent in by a medical professional or institution ([facility], [facility], urgent care, hospital, or correction...) When possible be specific @ -No Did you speak to anyone other than the patient for history (EMS, parent, family, police, friend...)? What history was obtained from this source @ -No Did you review nursing and triage notes (agree or disagree)? Why? @ -I reviewed and agree with nursing and triage notes Were old charts reviewed (outside hosp., previous admission, EMS record, old EKG, old radiological studies, urgent care reports/EKG's, correction records)? Report findings @ -No old charts were reviewed Differential Diagnosis (DKA, hyperglycemia dehydration EKG interpreted by me (3pts min.). @ -As above X-rays interpreted by me (1pt min.). @ -None done CT interpreted by me (1pt min.). @ -None done U/S interpreted by me (1pt. min.). @ -None done What testing was considered but not performed or refused? (CT, X-rays, U/S, labs)? Why? @ -None What meds were considered but not given or refused? Why? @ -None Did you discuss the management of the patient with other professionals (professionals i.e. [facility], [facility], lab, RT, psych nurse, psychologist social, chief investigator, teacher, protective services officer, catalytic case operator)? Give summary @ -No Was smoking cessation discussed for >3mins.? @ -No Was critical care preformed (if so, how long)? @ -No Were there social determinants of health that impacted care today? How? (Homelessness, low income, unemployed, alcoholism, drug addiction, transportation, low edu. Level, literacy, decrease access to med. care, penitentiary, rehab)? @ -No Was there de-escalation of care discussed even if they declined (Discuss DNR or withdrawal of care, Hospice)? DNR status @ -No What co-morbidities impacted this encounter? (DM, HTN, Smoking, COPD, CAD, Cancer, CVA, ARF, Chemo, Hep., AIDS, mental health diagnosis, sleep apnea, morbid obesity)? @ -Diabetes Was patient admitted / discharged? Hospital course, mention meds given and route, prescriptions, significant lab abnormalities, going to OR and other pertinent info. @ -42-year-old female with elevated blood sugar. Patient has blood sugar 500. No signs of DKA. No ketones in the urine, she is not acidotic. She is given IV fluids and IV insulin with downtrending level. Given the significantly elevated blood glucose she has started on metformin. She will follow-up with her primary care tomorrow as planned. Rechecked blood glucose is 224 Undiagnosed new problem with uncertain prognosis? @ -No Drug Therapy requiring intensive monitoring for toxicity (Heparin, Nitro, Insulin, Cardizem)? @ -No Were any procedures done? @ -No Diagnosis/symptom? @Hyperglycemia, type 2 diabetes cute, or Chronic, or Acute on Chronic? @ -Acute Uncomplicated (without systemic symptoms) or Complicated (systemic symptoms)? @ -Default Side effects of treatment? @ -No Exacerbation, Progression, or Severe Exacerbation? @ -No Poses a threat to life or bodily function? How? (Chest pain, [place], [place], pneumonia, PE, COPD, DKA, ARF, appy, cholecystitis, CVA, Diverticulitis, Homicidal, Suicidal, threat to staff... and all critical care pts) @ -Low risk at this time (Agustin Kim) - Lab Data Lab Results 12/06/23 12/06/23 12/06/23 Range/Units 13:21 13:21 13:21 WBC 7.4 (3.8-10.6) k/uL RBC 4.66 (3.80-5.40) m/uL Hgb 12.8 (11.4-16.0) gm/dL Hct 40.6 (34.0-46.0) % MCV 87.2 (80.0-100.0) fL MCH 27.4 (25.0-35.0) pg MCHC 31.4 (31.0-37.0) g/dL RDW 13.4 (11.5-15.5) % Plt Count 191 (150-450) k/uL MPV 9.5 Neutrophils % 74 % Lymphocytes % 23 % Monocytes % 2 % Eosinophils % 0 % Basophils % 0 % Neutrophils # 5.4 (1.3-7.7) k/uL Lymphocytes # 1.7 (1.0-4.8) k/uL Monocytes # 0.2 (0-1.0) k/uL Eosinophils # 0.0 (0-0.7) k/uL Basophils # 0.0 (0-0.2) k/uL Sodium 133 L (137-145) mmol/L Potassium 4.5 (3.5-5.1) mmol/L Chloride 99 (98-107) mmol/L Carbon Dioxide 24 (22-30) mmol/L Anion Gap 10 mmol/L BUN 15 (7-17) mg/dL Creatinine 0.73 (0.52-1.04) mg/dL Est GFR (CKD-EPI)AfAm >90 (>60 ml/min/1.73 sqM) Est GFR (CKD-EPI)NonAf >90 (>60 ml/min/1.73 sqM) Glucose 514 H* (74-99) mg/dL Plasma Lactic Acid Dennys (0.7-2.0) mmol/L Calcium 9.1 (8.4-10.2) mg/dL Total Bilirubin 0.3 (0.2-1.3) mg/dL AST 55 H (14-36) U/L ALT 86 H (4-34) U/L Alkaline Phosphatase 193 H (38-126) U/L Total Protein 7.1 (6.3-8.2) g/dL Albumin 4.0 (3.5-5.0) g/dL Urine Color Colorless Urine Appearance Clear (Clear) Urine pH 5.5 (5.0-8.0) Ur Specific [place] 1.032 (1.001-1.035) Urine Protein 1+ H (Negative) Urine Glucose (UA) 4+ H (Negative) Urine Ketones Negative (Negative) Urine Blood Moderate H (Negative) Urine Nitrite Negative (Negative) Urine Bilirubin Negative (Negative) Urine Urobilinogen <2.0 (<2.0) mg/dL Ur Leukocyte Esterase Moderate H (Negative) Urine RBC 49 H (0-5) /hpf Urine WBC 7 H (0-5) /hpf Ur Squamous Epith Cells 8 H (0-4) /hpf Urine Bacteria Rare H (None) /hpf Urine Mucus Rare H (None) /hpf 12/06/23 Range/Units 13:21 WBC (3.8-10.6) k/uL RBC (3.80-5.40) m/uL Hgb (11.4-16.0) gm/dL Hct (34.0-46.0) % MCV (80.0-100.0) fL MCH (25.0-35.0) pg MCHC (31.0-37.0) g/dL RDW (11.5-15.5) % Plt Count (150-450) k/uL MPV Neutrophils % % Lymphocytes % % Monocytes % % Eosinophils % % Basophils % % Neutrophils # (1.3-7.7) k/uL Lymphocytes # (1.0-4.8) k/uL Monocytes # (0-1.0) k/uL Eosinophils # (0-0.7) k/uL Basophils # (0-0.2) k/uL Sodium (137-145) mmol/L Potassium (3.5-5.1) mmol/L Chloride (98-107) mmol/L Carbon Dioxide (22-30) mmol/L Anion Gap mmol/L BUN (7-17) mg/dL Creatinine (0.52-1.04) mg/dL Est GFR (CKD-EPI)AfAm (>60 ml/min/1.73 sqM) Est GFR (CKD-EPI)NonAf (>60 ml/min/1.73 sqM) Glucose (74-99) mg/dL Plasma Lactic Acid Dennys 1.6 (0.7-2.0) mmol/L Calcium (8.4-10.2) mg/dL Total Bilirubin (0.2-1.3) mg/dL AST (14-36) U/L ALT (4-34) U/L Alkaline Phosphatase (38-126) U/L Total Protein (6.3-8.2) g/dL Albumin (3.5-5.0) g/dL Urine Color Urine Appearance (Clear) Urine pH (5.0-8.0) Ur Specific [place] (1.001-1.035) Urine Protein (Negative) Urine Glucose (UA) (Negative) Urine Ketones (Negative) Urine Blood (Negative) Urine Nitrite (Negative) Urine Bilirubin (Negative) Urine Urobilinogen (<2.0) mg/dL Ur Leukocyte Esterase (Negative) Urine RBC (0-5) /hpf Urine WBC (0-5) /hpf Ur Squamous Epith Cells (0-4) /hpf Urine Bacteria (None) /hpf Urine Mucus (None) /hpf Disposition <Rosaura Coffman - Last Filed: 12/06/23 13:26> Is patient prescribed a controlled substance at d/c from ED?: No Time of Disposition: 16:00 <Agustin Kim - Last Filed: 12/06/23 16:18> Clinical Impression: Hyperglycemia Disposition: HOME SELF-CARE Condition: Fair Instructions (If sedation given, give patient instructions): Diabetic Hyperglycemia (ED), Diabetes and Exercise (ED) Prescriptions: metFORMIN HCL 500 mg PO BID 30 Days #60 tablet Referrals: Loren Bear MD [Primary Care Provider] - 1-2 days
[2023-12-06 13:42] LABS: ALT 86 U/L (4-34); AST 55 U/L (14-36); African American GFR (CKD) >90 (>60 ml/min/1.73 sqM); Alkaline Phosphatase 193 U/L (38-126); Anion Gap 10 mmol/L; Blood Urea Nitrogen 15 mg/dL (7-17); Calcium 9.1 mg/dL (8.4-10.2); Carbon Dioxide 24 mmol/L (22-30); Chloride 99 mmol/L (98-107); Non-African American GFR(CKD) >90 (>60 ml/min/1.73 sqM); Potassium 4.5 mmol/L (3.5-5.1); Sodium 133 mmol/L (137-145); Total Bilirubin 0.3 mg/dL (0.2-1.3); Total Protein 7.1 g/dL (6.3-8.2)
[2023-12-06 13:44] LABS: Glucose 514 mg/dL (74-99)
[2023-12-06 13:45] LABS: Appearance,Urine Clear (Clear); Bacteria,Urine Rare /hpf; Bilirubin,Urine Negative (Negative); Blood,Urine Moderate (Negative); Color,Urine Colorless; Glucose,Urine (UA) 4+ (Negative); Ketones,Urine Negative (Negative); Leukocyte Esterase,Urine Moderate (Negative); Mucus,Urine Rare /hpf; Nitrite,Urine Negative (Negative); PH, Urine 5.5 (5.0-8.0); Protein,Urine 1+ (Negative); RBC,Urine 49 /hpf (0-5); Specific Gravity,Urine 1.032 (1.001-1.035); Squamous Epithelial Cell,Urine 8 /hpf (0-4); Urobilinogen,Urine <2.0 mg/dL (<2.0); WBC,Urine 7 /hpf (0-5)
[2023-12-06] MEDS: SODIUM CHLORIDE 0.9% 1,000 ML IV ONE (15:17)
[2023-12-06] MEDS: INSULIN REGULAR 100 UNIT/ML VIAL (IV) IV ONE (15:20)
[2023-12-06 16:13] LABS: Glucose,Whole Blood 224 mg/dL (70-110)
[2023-12-06 16:56] VITALS: BP 122/85; PULSE 87; RESP 16
== END 2023-12-06 16:23 | disposition home or self-care (01) ==
LOC: EC 12:18
DX: E11.65 Type 2 diabetes mellitus with hyperglycemia (principal); Z91.040 Latex allergy status
CPT/HCPCS: 36415; 80053; 81001; 83605; 85025; 96360; 99283

== ENCOUNTER → 2024-08-19 | Outpatient (CLI) | payer MEDICARE, OTHER ==
--- NOTE | 2024-08-20 08:52 | MM ---
Reason for Exam: Screening (asymptomatic). Last mammogram was performed 4 year(s) and 10 month(s) ago. Patient History: Menarche at age 15. First Full-Term at age 36. Late child-bearing (after 32). Last menstrual period: 08/19/2024 Risk Values: Irina 5 year model risk: 0.8%. NCI Lifetime model risk: 13.5%. Prior Study Comparison: 10/31/2019 Bilateral Diagnostic Mammogram, [facility]. Tissue Density: There are scattered areas of fibroglandular density. Findings: Analyzed By CAD. Right breast: There is no suspicious group of microcalcifications or new suspicious mass. Left breast: There is no suspicious group of microcalcifications or new suspicious mass. Overall Assessment: Negative, BI-RAD 1 Management: Screening Mammogram of both breasts in [address] [facility] will attempt to contact patient to return for supplemental views and ultrasound if indicated. Patient should continue monthly self-breast exams. A clinical breast exam by your physician is recommended on an annual basis. This exam should not preclude additional follow-up of suspicious palpable abnormalities. Note on Irina scores and lifetime risk: 1. A Irina score greater than 3% is considered moderate risk. If this is the case, consider specialist referral to assess eligibility for a risk reducing agent. 2. If overall lifetime risk for the development of breast cancer is 20% or higher, the patient may qualify for future screening with alternating mammogram and breast MRI. [facility], , 08/20/2024 8:49 AM. Electronically signed and approved by: Agustin Bustos DO
== END | disposition home or self-care (01) ==
LOC: RADMAMWWP 15:48
PROVIDERS: ATTEND Family Medicine
DX: Z12.31 Encounter for screening mammogram for malignant neoplasm of breast (principal); R92.323 Mammographic fibroglandular density, bilateral breasts
CPT/HCPCS: 77063; 77067

== ENCOUNTER → 2024-10-09 | Outpatient (CLI) | payer MEDICARE, OTHER ==
--- NOTE | 2024-10-09 15:18 | US ---
EXAMINATION TYPE: US kidneys/renal and bladder DATE OF EXAM: 10/09/2024 COMPARISON: US(09/04/2019) CLINICAL INDICATION: Female, 43 years old with history of R31.29 OTHER MICROSCOPIC HEMATURIA; TECHNIQUE: Grayscale imaging of the bilateral kidneys and urinary bladder: FINDINGS: EXAM MEASUREMENTS: Right Kidney: 9.0x4.1x5.1cm Left Kidney: 10.3x4.5x4.6cm slightly limited exam due to pt body habitus/overlying bowel Right Kidney: No hydronephrosis or masses seen Left Kidney: No hydronephrosis or masses seen Bladder: wnl Bilateral Jets seen: Yes, limited due to pt unable fully fill bladder IMPRESSION: 1. Normal renal ultrasound [facility], , 10/09/2024 3:16 PM
== END | disposition home or self-care (01) ==
LOC: RADUSWWP 13:59
PROVIDERS: ATTEND Family Medicine
DX: R31.29 Other microscopic hematuria (principal)
CPT/HCPCS: 76770